=== PATIENT | female | born 1990 | race Two or more races ===

== ENCOUNTER → 2020-07-28 15:23 | Outpatient (BNVA) | payer SELFPAY | PROVIDERS: Visit Provider Physician Assistant Medical | DX: Z13.89 Encounter for screening for other disorder (principal) ==

== ENCOUNTER 2021-02-03 16:32 | Outpatient (REF) | payer BC, SELFPAY ==
--- NOTE | ~2021-02-03 | US_ITS ---
EXAMINATION: US VENOUS ULTRASOUND WITH DOPPLER LOWER EXTREMITY, LEFT CLINICAL INFORMATION: Left lower extremity pain and swelling. COMPARISON: Reportedly, a scan at [facility] in December demonstrated clot extending from the calf veins up to the common femoral vein. TECHNIQUE: Ultrasound of the deep veins is performed from the hip to the calf with compression sonography and color and pulse Doppler assessment. Spectral analysis with color-flow imaging is performed. FINDINGS: Eccentric nonobstructing thrombus is present in the common femoral vein as well as the popliteal vein. The deep venous system is otherwise unremarkable with normal venous compression and augmented flow in the superficial femoral vein, profunda femoral vein, and the trifurcation region. There is no significant popliteal fossa cyst. It is possible that the above-mentioned findings could be the residua of the previous disease, although no prior studies/images are available for comparison. US/US venous duplex LE IMPRESSION: DVT present in the common femoral vein and popliteal vein. These critical results were communicated to Dr. Solis's office at 5:00 PM on the day of the exam.
== END 2021-02-03 16:33 | disposition home or self-care (01) ==
LOC: HO.US 16:32
PROVIDERS: Visit Provider Family Medicine
DX: I82.402 Acute embolism and thrombosis of unspecified deep veins of left lower extremity (principal)
CPT/HCPCS: 93971

== ENCOUNTER 2021-05-04 16:24 | Outpatient (REF) | payer BC, SELFPAY ==
--- NOTE | ~2021-05-04 | US_ITS ---
EXAMINATION: US VENOUS ULTRASOUND WITH DOPPLER LOWER EXTREMITY, LEFT CLINICAL INFORMATION: Follow-up DVT COMPARISON: Previous exam January 2021 TECHNIQUE: Ultrasound of the deep veins is performed from the hip to the calf with compression sonography and color and pulse Doppler assessment. Spectral analysis with color-flow imaging is performed. FINDINGS: There is thrombus seen in the left common femoral, superficial femoral and popliteal veins are within appears increased from January 2021 exam. The posterior tibial and peroneal veins in the calf are patent. There is no Eckert's cyst. US/US venous duplex LE LT IMPRESSION: Left common femoral, superficial femoral popliteal vein DVT. This appears increased from 02/03/2021 exam.
== END 2021-05-04 16:25 | disposition home or self-care (01) ==
LOC: HO.US 16:24
PROVIDERS: PCP Family Medicine; Visit Provider Internal Medicine
DX: I82.402 Acute embolism and thrombosis of unspecified deep veins of left lower extremity (principal)
CPT/HCPCS: 93971

== ENCOUNTER 2021-07-15 14:51 | Outpatient (REF) | payer OTHER, SELFPAY ==
--- NOTE | ~2021-07-15 | US_ITS ---
EXAMINATION: US VENOUS ULTRASOUND WITH DOPPLER LOWER EXTREMITY, LEFT CLINICAL INFORMATION: Follow-up DVT COMPARISON: Previous left lower extremity venous ultrasound January and April 2021 TECHNIQUE: Ultrasound of the deep veins is performed from the hip to the calf with compression sonography and color and pulse Doppler assessment. Spectral analysis with color-flow imaging is performed. FINDINGS: The left common femoral, superficial femoral, profunda, popliteal and posterior tibial and peroneal veins in the calf are patent. There is no evidence of acute DVT. There is some echogenic material adjacent to the wall of the left common femoral vein likely related to changes from old DVT. There is no Eckert's cyst. 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 Otherwise veins of the left lower extremity appear patent.
== END 2021-07-15 14:52 | disposition home or self-care (01) ==
LOC: HO.US 14:51
PROVIDERS: PCP Internal Medicine; Visit Provider Internal Medicine
DX: I82.402 Acute embolism and thrombosis of unspecified deep veins of left lower extremity (principal)
CPT/HCPCS: 93971

== ENCOUNTER 2021-09-06 09:14 | Outpatient (REF) | payer OTHER, SELFPAY ==
[2021-09-06 09:35] LABS: MANUAL DIFF FLAG NO
[2021-09-06 09:57] LABS: Basophils Percent Auto 0.4 % (0-2); Eosinophils Absolute Auto 0.2 X10*3/uL (0.0-0.4); Eosinophils Percent Auto 2.4 % (0-4); Hematocrit 42.8 % (37.0-47.0); Hemoglobin 14.4 g/dl (12.0-16.0); Imm Gran Abs Auto 0.02 X10*3/uL (0.00-0.03); Imm Gran Pct Auto 0.3 % (0.0-0.4); Lymphocytes Absolute Auto 2.7 X10*3/uL (1.2-4.9); Lymphocytes Percent Auto 37.2 % (20-40); Mean Corpuscular HGB Conc 33.6 g/dl (31.0-35.0); Mean Corpuscular Hemoglobin 26.9 pg (27.0-33.0); Mean Corpuscular Volume 79.9 fL (80.0-98.0); Mean Platelet Volume 11.4 fL (9.4-12.3); Monocytes Absolute Auto 0.4 X10*3/uL (0.1-1.2); Monocytes Percent Auto 5.3 % (2-11); Neutrophils Absolute Auto 3.9 x10*3/uL (2.0-8.3); Neutrophils Percent Auto 54.4 % (45-73); Platelet Count 207 X10*3/uL (160-400); Red Blood Count 5.36 X10*6/uL (4.20-5.50); Red Cell Distribution Width 13.1 % (11.0-16.0); White Blood Count 7.2 X10*3/uL (4.8-10.8)
[2021-09-06 10:09] LABS: Estimated Average Glucose 326 mg/dL
[2021-09-06 10:25] LABS: Alanine Aminotransferase 17 U/L (0-31); Alkaline Phosphatase 63 U/L (39-117); Anion Gap 11 (12-20); Aspartate Amino Transferase 12 U/L (5-31); Bilirubin Total 1.1 mg/dL (0.0-1.0); Blood Urea Nitrogen 11 mg/dL (9-16); Calcium 9.3 mg/dL (8.4-10.2); Carbon Dioxide 26 mmol/L (22-29); Chloride 103 mmol/L (96-108); Cholesterol 178 mg/dL; Estimated Glomerular Filt Rate > 60; Glucose Random 324 mg/dL (60-115); HDL Cholesterol 39 mg/dL; LDL Cholesterol Calculated 119 mg/dl; Sodium 136 mmol/L (135-145); Total Protein 7.5 g/dL (6.5-8.0); Triglycerides 102 mg/dL
[2021-09-06 10:43] LABS: Creatinine Urine 170.16 mg/dL; Microalbum/Creatinine Ratio Ur 7.6 ug/mg cr
[2021-09-06 10:48] LABS: Thyroid Stimulating Hormone 0.68 uIU/mL (0.32-4.0)
[2021-09-17 21:37] LABS: Glutamic acid decarboxylase Ab <5 IU/mL (<5)
[2021-09-27 00:52] LABS: Islet Cell Antibody Screen NEGATIVE (NEGATIVE)
== END 2021-09-06 09:15 | disposition home or self-care (01) ==
LOC: HO.LAB 09:14
PROVIDERS: PCP Internal Medicine; Visit Provider Internal Medicine
DX: Z00.01 Encounter for general adult medical examination with abnormal findings (principal); E11.65 Type 2 diabetes mellitus with hyperglycemia; Z86.718 Personal history of other venous thrombosis and embolism
CPT/HCPCS: 36415; 80053; 80061; 82043; 83036; 84443; 85025; 86255; 86341

== ENCOUNTER 2023-07-23 10:14 | Outpatient (AMB) | payer OTHER, SELFPAY ==
--- NOTE | 2023-07-23 11:28 | MHC.OFFWIV ---
Intake Vital Signs 07/23/23 11:33 Height 5 ft 1 in Weight 73.482 kg BMI 30.6 BP 110/70 Blood Pressure Location Rt brachial Position Sitting Pulse 92 Pulse Source Pulse Oximeter Temp 97.3 F Temp Source Temporal Artery Scan Pulse Oximetry (%) 98 Oxygen Delivery Method Room Air Intake Visit Reasons: EST/congestion [phone] Intake Note: pt is here today for congestion started yesterday Patient Tobacco Use Status: Never used Tobacco Allergies No Known Allergies Allergy (Verified 07/23/23 11:29) Do you need a note to return to daycare/school/sports/work: Yes HPI HPI Comments History of Present Illness Details 1146 33-year-old no significant hx who presents with fatigue, malaise, myalgias, cough, subjective fevers and chills that started yesterday old decided.? No known sick contacts.? Denies chest pain, shortness of breath, nausea, vomiting, abdominal pain, headache vision change, dizziness, weakness, changes in bowel or urinary habits Physical exam benign History and physical exam concerning for viral illness versus bronchitis versus flu versus COVID versus RSV.? Unlikely pneumonia, ACS, dissection, pulmonary embolism, acute respiratory distress Plan at this time viral testing will discharge patient home with supportive measures.? Educated patient on diagnosis and treatment plan, answered all question, patient verbalizes understanding.? At this time patient will be discharged home, advised to return with new or worsening symptoms.? Educated on worrisome signs and symptoms and when to return.? At this time I feel comfortable discharge home. [facility] Medical History Preeclampsia DVT (deep vein thrombosis) in Surgical History Hx of emergency section Family History Father No problems noted. Mother Diabetes mellitus Brother No problems noted. Sister No problems noted. Sister No problems noted. Paternal Grandmother Heart attack Social History Household Members: Spouse and Children Housing: Apartment Are you a primary critical care nurse specialist to a significant other at home: No Do you presently have visiting nurse or other home services: No Alcohol intake: former Patient Tobacco Use Status: Never used Tobacco service: No Current occupational status: employed Review of Systems Const Details: Constitutional : No Weight loss, No Fever, No Chills, + Fatigue, + Malaise ENT/Mouth : No sore throat, No Rhinorrhea, + congestion Eyes: No Eye Pain, No Swelling, No Redness Cardiovascular : No Chest Pain, No SOB, No Dyspnea on Exertion, No Orthopnea, No Edema, No Palpitations Respiratory : No Cough, No Sputum, No Wheezing Gastrointestinal : No Nausea, No Vomiting, No Diarrhea, No Constipation, No abdominal Pain, No Hematochezia, No Melena Genitourinary : No Dysuria, No Urinary Frequency, No Hematuria, Musculoskeletal : No joint pain, No Myalgias, No Joint Swelling Skin : No Skin Lesions, No rash Neuro : No Weakness, No Numbness, No Dizziness, No Headache Psych : No Anxiety/Panic, No Depression All other systems reviewed and are negative All systems reviewed & are unremarkable except as noted in HPI and below Physical Exam Vital Signs: Last Vital Signs Temp 97.3 F 07/23/23 11:33 Pulse 92 07/23/23 11:33 BP 110/70 07/23/23 11:33 Pulse Ox 98 07/23/23 11:33 Oxygen Delivery Method Room Air 07/23/23 11:33 BMI result Body Mass Index 30.6 vss Appearance: Alert.? Oriented X3.? No acute distress.? Head: Normocephalic, atraumatic, no step-offs or deformities Eyes: Pupils equal, round and reactive to light.? ENT: Pharynx normal.??External ears normal No pain with manipulation of external ears bilaterally. No mastoid tenderness. Neck: Normal inspection.? Neck supple.? CVS: Normal heart rate and rhythm.? Pulses normal.? Respiratory: No respiratory distress.? Breath sounds normal.? Abdomen: Soft and nontender.? Skin: Skin warm and dry.? Normal skin color.? Normal skin turgor.? Extremities: No lower extremity edema.? No calf ttp. 5/5 strength to bilateral upper and lower extremities Neuro: Oriented X 3.? No motor deficit.? No sensory deficit. CN 2-12 intact Assessment & Plan Assessment & Plan (1) Viral illness: Code(s): B34.9 - Viral infection, unspecified Plan Take your medications as prescribed. If you were prescribed antibiotics today, it is important that you take your medication to their entirety, do not skip any doses, do not finish them early. Follow-up with your primary care provider this week. Return to the emergency department with new or worsening symptoms. Such as fevers, chills, chest pain, shortness of breath, nausea, vomiting, dizziness, headache, vision changes, lethargy In case of emergency call 911 Orders: Orders SARS-CoV2/FLU/RSV Today B34.9 - Viral infection, unspecified Coding Level of Care Code Est Pt Level 3 (18953) Diagnoses Viral illness B34.9
[2023-07-23 11:33] VITALS: BP 110/70; PULSE 92; TEMP 36.3; O2SAT 98; BMI 30.6
== END 2023-07-23 11:55 | disposition home or self-care (01) ==
PROVIDERS: PCP Family Medicine; Visit Provider Physician Assistant
DX: B34.9 Viral infection, unspecified (principal)
CPT/HCPCS: 99213

== ENCOUNTER 2023-07-23 13:46 | Outpatient (REF) | payer OTHER, SELFPAY ==
[2023-07-23 14:46] LABS: Influenza A PCR NEGATIVE (Negative); Influenza B PCR NEGATIVE (Negative); Resp Syncy Virus RNA Qual PCR POSITIVE (Negative); SARS COV2 PCR INHOUSE NEGATIVE (Negative)
== END 2023-07-23 13:47 | disposition home or self-care (01) ==
LOC: HO.HMGCLNP 13:46
PROVIDERS: Visit Provider Physician Assistant
DX: B34.9 Viral infection, unspecified (principal); Z11.52 Encounter for screening for COVID-19
CPT/HCPCS: 0241U

== ENCOUNTER 2023-11-26 08:11 | Outpatient (AMB) | payer OTHER, SELFPAY ==
--- NOTE | 2023-11-26 08:17 | AM.OFFWIN_ITS ---
Intake Vital Signs 11/26/23 08:21 Height 5 ft 1 in Weight 165 lb BMI 31.2 BP 122/80 Blood Pressure Location Rt brachial Position Sitting Pulse 72 Pulse Source Pulse Oximeter Temp 98.2 F Temp Source Oral Pulse Oximetry (%) 98 Oxygen Delivery Method Room Air Intake Visit Reasons: Sore throat, cough, congestion (lobby) Intake Note: pt is here for c/o sore throat, cough, congestion Patient Tobacco Use Status: Never used Tobacco Allergies No Known Allergies Allergy (Verified 11/26/23 08:21) Do you need a note to return to daycare/school/sports/work: Yes HPI HPI Comments History of Present Illness Details 33 y/o female patient [facility] with c/o Sore- throat, cough and congestion x days now. Denies any recent sick contacts. Denies fevers, chills, nausea or vomiting. PFSH Medical History Preeclampsia DVT (deep vein thrombosis) in Surgical History Hx of emergency section Family History Father No problems noted. Mother Diabetes mellitus Brother No problems noted. Sister No problems noted. Sister No problems noted. Paternal Grandmother Heart attack Social History Household Members: Spouse and Children Housing: Apartment Are you a primary customer care voice consultant to a significant other at home: No Do you presently have visiting nurse or other home services: No Alcohol intake: former Patient Tobacco Use Status: Never used Tobacco service: No Current occupational status: employed Review of Systems Const All systems reviewed & are unremarkable except as noted in HPI and below Physical Exam Vital Signs: Last Vital Signs Temp 98.2 F 11/26/23 08:21 Pulse 72 11/26/23 08:21 BP 122/80 11/26/23 08:21 Pulse Ox 98 11/26/23 08:21 Oxygen Delivery Method Room Air 11/26/23 08:21 BMI result Body Mass Index 31.2 Const General: no acute distress Orientation/consciousness: patient oriented x3 HEENT Head: Yes normocephalic Ears: external ears normal and TM's normal bilaterally General nose exam: Abnormal mucous membranes and turbinates present boggy and erythematous Face and sinus: Yes sinuses nontender Mouth: moist mucous membranes Throat: Yes posterior oropharynx normal Resp Effort & Inspection: normal respiratory effort and able to speak in complete sentences Auscultation: clear to auscultation bilaterally, no crackles, no rales, no rhonchi and no wheezes Cardio Rate: regular rate Rhythm: regular rhythm Neuro General: patient oriented x3 Results AMB Rapid Strep AMB Rapid Strep Negative Last Edit by Sandoval Yañez CMA on 11/26/23 08 :40 Results Reviewed Results Reviewed: Laboratory Last Values Strep Scn Rapid Clinic Negative 11/26/23 08:38 Assessment & Plan Assessment & Plan (1) Acute pharyngitis: Code(s): J02.9 - Acute pharyngitis, unspecified Qualifiers: Pharyngitis/tonsillitis etiology: unspecified etiology Qualified Code(s): J02.9 - Acute pharyngitis, unspecified Plan: - OTC cold remedies - Rest - Acetaminophen for pain relief. Orders: Orders AMB Rapid Strep Screen Today Z13.9 - Encounter for screening, unspecified SARS-CoV2/FLU/RSV Today J02.9 - Acute pharyngitis, unspecified, R09.89 - Other specified symptoms and signs involving the circulatory and respiratory systems Coding Level of Care Code Est Pt Level 3 (95982) Diagnoses Acute pharyngitis, unspecified etiology J02.9 Pharyngitis/tonsillitis etiology: unspecified etiology Time Spent (min) 15
[2023-11-26 08:21] VITALS: BP 122/80; PULSE 72; TEMP 36.8; O2SAT 98; BMI 31.2
== END 2023-11-26 09:09 | disposition home or self-care (01) ==
PROVIDERS: PCP Family Medicine; Visit Provider Nurse Practitioner Family
DX: J02.9 Acute pharyngitis, unspecified (principal); Z13.9 Encounter for screening, unspecified
CPT/HCPCS: 87880; 99213

== ENCOUNTER 2023-11-26 08:40 | Outpatient (REF) | payer OTHER, SELFPAY ==
[2023-11-26 11:54] LABS: Influenza A PCR NEGATIVE (Negative); Influenza B PCR NEGATIVE (Negative); Resp Syncy Virus RNA Qual PCR NEGATIVE (Negative); SARS COV2 PCR INHOUSE NEGATIVE (Negative)
== END 2023-11-26 08:41 | disposition home or self-care (01) ==
LOC: HO.LAB 08:40
PROVIDERS: Visit Provider Nurse Practitioner Family
DX: R09.89 Other specified symptoms and signs involving the circulatory and respiratory systems (principal); J02.9 Acute pharyngitis, unspecified
CPT/HCPCS: 0241U

== ENCOUNTER → 2023-12-13 14:02 | Outpatient (BNVA) | payer SELFPAY | PROVIDERS: PCP Family Medicine | DX: Z01.84 Encounter for antibody response examination (principal) | CPT/HCPCS: 90710 ==